=== PATIENT | female | born 1970 | race Hispanic/Latino ===

== ENCOUNTER → 2019-02-01 | Outpatient (CLI) | payer BC ==
--- NOTE | 2019-02-02 10:14 | RAD ---
Three-view lumbar spine Indication: LOW BACK PAIN Comparison: None. Impression: Moderate to severe disc space height loss at L5-S1 with mild height loss L4-L5. Vertebral body height maintained without fracture or subluxation. Facet arthrosis lower 3 lumbar disc space levels. Electronically signed by: Brenden Palomo MD 02/02/2019 10:11 AM CDT
== END ==
LOC: RAD 15:48
PROVIDERS: ATTEND Nurse Practitioner Family
DX: M51.86 Other intervertebral disc disorders, lumbar region (principal)

== ENCOUNTER 2019-02-23 16:50 | Emergency (ER) | payer BC ==
[2019-02-23 17:14] VITALS: O2SAT 99
[2019-02-23] MEDS ORDERED: KETOROLAC TROMETHAMINE INJ 30 MG/ML VIAL IV ONE (17:15)
[2019-02-23] MEDS ORDERED: ONDANSETRON INJ 4 MG/2 ML VIAL IV ONE (17:15)
[2019-02-23] MEDS ORDERED: SODIUM CHLORIDE 0.9% (FLUSH) 10 ML SYG IV PRN (17:15)
[2019-02-23] MEDS ORDERED: SODIUM CHLORIDE 0.9% 1000ML 1,000 ML IVS ONE (17:15)
--- NOTE | 2019-02-23 17:19 | ED.PDOC ---
History of Present Illness - General Chief Complaint: Abdominal Pain Stated Complaint: Lower abdomen discomfort Time Seen by Provider: 02/23/19 17:07 Information Source: patient, family - History of Present Illness Initial Comments: PT PRESENTS FROM THE CLINIC DUE TO ACUTE WORSENING OF LOWER ABDOMINAL PAIN X 1 DAY. PAIN IS ASSOCIATED WITH NAUSEA AND ONE EPISODE OF LOOSE STOOL. PT HAS HAD INTERMITTENT EPISODES OF CHRONIC PELVIC PAIN FOR THE PAST YEAR AND IS BEING WORKED UP BY DR. SANDOVAL. PT HAS AN OUTPATIENT ULTRASOUND SCHEDULED FOR 03/23. Abdominal Pain Onset Location: RLQ, LLQ Pain Radiation: no radiation Quality: severe, sharpness Timing/Duration: 24 hours Improving Factors: nothing Worsening Factors: nothing Associated Symptoms: diarrhea, fever/chills, nausea/vomiting Review of Systems - Review of Systems Constitutional: States: chills, fever EENTM: Denies: nose congestion, throat pain Respiratory: Denies: cough, short of breath Cardiology: Denies: chest pain, palpitations Gastrointestinal/Abdominal: States: see HPI, abdominal pain, diarrhea, nausea. Denies: vomiting Genitourinary: Denies: dysuria, frequency Musculoskeletal: Denies: joint pain, joint swelling Skin: Denies: change in color, dryness Neurological: Denies: headache, numbness, paresthesia Endocrine: States: no symptoms reported Hematologic/Lymphatic: States: no symptoms reported Past Medical History (General) - Patient Medical History Hx Seizures: No Hx Stroke: No Hx Dementia: No Hx Asthma: Yes Hx of COPD: No Hx Cardiac Disorders: No Hx Congestive Heart Failure: No Hx Pacemaker: No Hx Hypertension: No Hx Thyroid Disease: No Hx Diabetes: No Hx Gastroesophageal Reflux: No Hx Renal Disease: No Hx Cancer: No Hx of HIV: No Hx Hepatitis C: No Hx MRSA: No Surgical History: cholecystectomy, other - Vaccination History Hx Tetanus, Diphtheria Vaccination: No Hx Influenza Vaccination: No Hx Pneumococcal Vaccination: No - Social History Hx Tobacco Use: No Hx Alcohol Use: No Hx Substance Use: No Hx Substance Use Treatment: No Hx Depression: No Hx Physical Abuse: No Hx Emotional Abuse: No Hx Suspected Abuse: No - Female History Patient is a Female of Child Bearing Age (10 -59 yrs old): Yes Patient : No Family Medical History - Family History Mother Family History: No Known Living Status: Still Living Physical Exam - Physical Exam General Appearance: Alert, Obvious distress, Well Developed, Well Groomed, Well Hydrated, Well Nourished Eyes, Ears, Nose, Throat Exam: normal ENT inspection Neck: supple, normal inspection Respiratory: lungs clear, normal breath sounds, no respiratory distress Cardiovascular/Chest: regular rate, rhythm, no murmur Gastrointestinal/Abdominal: soft, tenderness - BILATERAL LOWER QUADRANTS Back Exam: normal inspection Extremity: non-tender, normal inspection Neurologic: alert, normal mood/affect, oriented x 3 Skin Exam: normal color, warm/dry Progress - Progress Progress: 02/23/19 18:54 PT RESTING COMFORTABLY, REPORTS SIGNIFICANT IMPROVEMENT IN PAIN AFTER IV TORADOL. LABS AND DIAGNOSTICS DISCUSSED. RECOMMEND CONTINUED FOLLOW UP WITH DR. SANDOVAL AND RECOMMEND KEEPING APPT FOR OUTPATIENT US. - Results/Orders Results/Orders: Laboratory Tests 02/23/19 02/23/19 02/23/19 17:10 17:10 17:10 WBC 5.5 RBC 3.97 L Hgb 12.6 Hct 37.6 MCV 94.8 MCH 31.9 H MCHC 33.6 RDW 14.4 Plt Count 184 MPV 9.3 Absolute Neuts (auto) 4.10 Absolute Lymphs (auto) 0.90 L Absolute Monos (auto) 0.30 Absolute Eos (auto) 0.10 Absolute Basos (auto) 0.10 Neutrophils % 75.2 Lymphocytes % 17.0 L Monocytes % 5.5 Eosinophils % 1.1 Basophils % 1.2 Sodium 138 Potassium 3.6 Chloride 107 Carbon Dioxide 24 Anion Gap 10.6 L BUN 20 H Creatinine 0.58 L BUN/Creatinine Ratio 34.5 H Random Glucose 98 Serum Osmolality 278.3 Calcium 8.5 Total Bilirubin 0.6 Direct Bilirubin < 0.1 Indirect Bilirubin 0.5 AST 19 ALT 16 Alkaline Phosphatase 71 Serum Total Protein 7.2 Albumin 3.9 Serum HCG, Qual Negative Departure - Departure Clinical Impression: Pelvic pain, Uterine pain Time of Disposition: 18:57 Disposition: Discharge to Home or Self Care Condition: Good Departure Forms: ED Discharge - Pt. Copy, Patient Portal Self Enrollment Instructions: Chronic Pelvic Pain (DC) Diet: resume usual diet Referrals: Vikki Dodge NP [Primary Care Provider] - 1-5 Days Johnny Sandoval MD [Active Staff] - 1-5 Days Prescriptions: Tramadol-Acetaminophen [Ultracet] 1 - 2 tab PO Q6HR PRN #30 tab PRN Reason: Pain Home Medications: Ambulatory Orders Gabapentin 300 mg PO BEDTIME 02/23/19 Meloxicam 15 mg PO BEDTIME 02/23/19 Tramadol-Acetaminophen [Ultracet] 1 - 2 tab PO Q6HR PRN #30 tab 02/23/19
--- NOTE | 2019-02-23 18:22 | CT ---
EXAM DESCRIPTION: Abdomen/Pelvis w/Contrast CLINICAL HISTORY: diffuse lower abd tenderness COMPARISON: 08/20/2016 TECHNIQUE: Contiguous axial images of the abdomen and pelvis were obtained after the administration of intravenous contrast followed by reconstruction images.This exam was performed according to our departmental dose-optimization program, which includes automated exposure control, adjustment of the mA and/or kV according to patient size and/or use of iterative reconstruction technique. FINDINGS: There is heterogeneous attenuation of the uterus, which is more pronounced than on the prior exam and is nonspecific. No definite focal mass is seen. There is trace fluid in the pelvis. This could be physiologic if the patient is premenopausal. Several nonspecific low-attenuation lesions of the liver measure up to 10 mm diameter. The gallbladder is surgically absent. The liver, spleen, pancreas and kidneys are within normal limits. There is no hydronephrosis. The gallbladder is unremarkable. Adrenal glands are within normal limits. Aorta is normal in caliber and tapering. No significant free fluid. No free air. No bowel obstruction. There is no stranding of the mesenteric fat. The appendix appears normal. No evidence of periappendiceal inflammation. IMPRESSION: Unusually heterogeneous attenuation of the uterus with a small amount of adjacent free fluid. Heterogeneity of the uterus has progressed since the prior exam. Gynecologic evaluation is recommended. Ultrasound would provide greater detail of the uterine parenchyma if desired. Electronically signed by: Anshul Mcfarlane 02/23/2019 6:18 PM CDT
[2019-02-23 19:12] VITALS: BP 116/69; TEMP 98.4
== END 2019-02-23 19:12 | disposition home or self-care (01) ==
LOC: ER 16:50
DX: R10.2 Pelvic and perineal pain (principal); G89.29 Other chronic pain; R11.0 Nausea; R19.7 Diarrhea, unspecified; J45.909 Unspecified asthma, uncomplicated; Z90.49 Acquired absence of other specified parts of digestive tract
CPT/HCPCS: 36415; 74177; 80048; 80076; 84703; 85025; J1885; J2405; J7030

== ENCOUNTER → 2020-10-16 | Outpatient (CLI) | payer BC ==
--- NOTE | 2020-10-17 19:42 | MAM ---
EXAM DESCRIPTION: 3D Screening BILATERAL : Digital Mammography. CLINICAL HISTORY: 50 years Female ANNUAL SCREENING . No complaints. No personal history of breast cancer. Menarche age unknown. Childbirth age 22. Menopause age 49. No HRT. Lifetime risk of developing breast cancer (Tyrer-Cuzick model)(%): 6.5. COMPARISON: Baseline study at this facility. No prior reports available. TECHNIQUE: Bilateral CC and MLO projection full-field images, digital tomosynthesis mammographic technique. Bilateral digital 2-D full-field MLO images. CAD available for 2-D images. FINDINGS: The breast parenchymal density pattern is: Heterogeneously dense breast tissue, which may obscure small masses. Axillary nodes. Solitary microcalcifications, more in the left breast. Fibroglandular tissue larger volume in the left breast. No skin thickening or nipple retraction No focal, stellate mass or density, focal asymmetry , and no suspicious microcalcifications bilaterally. IMPRESSION: Benign exam. BIRAD CATEGORY: 2 BENIGN FINDINGS. RECOMMENDATIONS: FOLLOW UP: Routine digital bilateral mammographic screening, one year interval from October 2020. Written communication explaining the IMPRESSION and follow-up, will be mailed to the patient and referring health care provider. According to the [employer], yearly mammograms are recommended starting at age 40 and continuing as long as a woman is in good health. Any breast change noted on a breast self-exam should be reported promptly to the patient's healthcare provider. Breast MRI is recommended for women with an approximately 20-25% or greater lifetime risk of breast cancer, including women with a strong family history of breast or ovarian cancer and women who have been treated for Hodgkin's disease. A negative mammographic report should not delay tissue diagnosis in patients with significant clinical history or physical findings. Extremely dense breast tissue limits the sensitivity of digital mammography. Electronically signed by: Asnhul Shirley MD 10/17/2020 7:40 PM [employer]IMARY [employer]
== END ==
LOC: MAMMO 15:08
PROVIDERS: ATTEND Obstetrics & Gynecology
DX: Z12.31 Encounter for screening mammogram for malignant neoplasm of breast (principal)